=== PATIENT | female | born 2000 | race Caucasian/White ===

== ENCOUNTER 2018-10-23 22:27 | Emergency (ER) | payer BC ==
[~2018-10-23] VITALS: Ht 185.4 cm; Wt 100.7 kg
[2018-10-23 22:40] VITALS: Ht 185.4 cm; Wt 100.7 kg
[2018-10-24 02:33] VITALS: BP 127/70
== END 2018-10-24 02:33 | disposition home or self-care (01) ==
LOC: ED 22:27
DX: G43.909 Migraine, unspecified, not intractable, without status migrainosus (principal); J45.909 Unspecified asthma, uncomplicated
CPT/HCPCS: J0780; J1200; J7030